=== PATIENT | male | born 1995 | race African-American/Black ===

== ENCOUNTER → 2020-11-28 | Outpatient (CLI) | payer OTHER ==
--- NOTE | 2020-11-28 17:29 | REP ---
INDICATION: SHUT FINGER IN CAR DOOR. COMPARISON: None. TECHNIQUE: Right hand 4th digit four views FINDINGS: No acute fracture or destructive osseous lesion. IMPRESSION: Negative exam <Electronically signed by Akash Day > 11/28/20 [id number]
== END ==
LOC: M RAD 17:03
PROVIDERS: ATTEND Physician Assistant
DX: S67.194A Crushing injury of right ring finger, initial encounter (principal); W23.1XXA Caught, crushed, jammed, or pinched between stationary objects, initial encounter

== ENCOUNTER → 2022-01-30 | Outpatient (CLI) | payer OTHER | LOC: M PLAIMG 07:50 | PROVIDERS: ATTEND Nurse Practitioner Family | DX: M94.271 Chondromalacia, right ankle and joints of right foot (principal) ==

== ENCOUNTER 2022-02-18 06:18 | Emergency (ER) | payer OTHER ==
[~2022-02-18] VITALS: Ht 188 cm; Wt 86.4 kg
[2022-02-18] MEDS ORDERED: GI COCKTAIL 50ML BTL(HYOSCYAMINE/MAALOX/LIDOCAINE VISCOUS)(1:3:1) PO ONE (07:30)
[2022-02-18 07:37] LABS: BASO # 0.1 10^3/uL (0.0-0.2); BASO % 1.1 % (0.0-1.0); EOS # 0.2 10^3/uL (0.0-0.5); EOS % 3.5 % (0.0-3.0); HEMATOCRIT 45.2 % (42.0-52.0); HEMOGLOBIN 15.1 g/dl (13.5-17.5); LYMPH # 2.7 10^3/uL (1.5-5.0); LYMPH % 49.8 % (24.0-44.0); MEAN CORPUSCULAR HEMOGLOBIN 28.5 pg (27.0-33.0); MEAN CORPUSCULAR HGB CONC 33.4 g/dl (32.0-36.5); MEAN CORPUSCULAR VOLUME 85.4 fl (80.0-96.0); MONO # 0.5 10^3/uL (0.0-0.8); MONO % 8.5 % (2.0-8.0); NEUTROPHILS % 36.9 % (36.0-66.0); PLATELET COUNT, AUTOMATED 193 10^3/uL (150-450); RED BLOOD COUNT 5.29 10^6/uL (4.30-6.10); WHITE BLOOD COUNT 5.5 10^3/uL (4.0-10.0)
[2022-02-18 08:11] LABS: ALBUMIN 3.8 GM/DL (3.2-5.2); ALT/SGPT 23 U/L (12-78); BILIRUBIN,DIRECT < 0.1 MG/DL (0.0-0.2); BILIRUBIN,TOTAL 0.5 MG/DL (0.2-1.0); BLOOD UREA NITROGEN 13 MG/DL (7-18); CALCIUM LEVEL 9.4 MG/DL (8.5-10.1); CARBON DIOXIDE LEVEL 28 MEQ/L (21-32); CHLORIDE LEVEL 107 MEQ/L (98-107); CK-MB VALUE MASS < 1.0 NG/ML (<3.6); CPK CREATINE PHOSPHOKINASE 268 U/L (39-308); CREATININE FOR GFR 0.98 MG/DL (0.70-1.30); GLOMERULAR FILTRATION RATE > 60.0 (>60); GLUCOSE, FASTING 88 MG/DL (70-100); LIPASE 82 U/L (73-393); MB/CK RELATIVE INDEX 0.37 (< OR =4); POTASSIUM SERUM 4.8 MEQ/L (3.5-5.1); SODIUM LEVEL 136 MEQ/L (136-145); TOTAL PROTEIN 7.6 GM/DL (6.4-8.2)
[2022-02-18] MEDS ORDERED: PEPC1TAB5 PO (08:56)
[2022-02-18 09:12] VITALS: BP 132/92
== END 2022-02-18 09:20 | disposition home or self-care (01) ==
LOC: M ED 06:18
DX: K29.71 Gastritis, unspecified, with bleeding (principal)

== ENCOUNTER 2022-07-03 07:03 | Emergency (ER) | payer OTHER ==
[~2022-07-03] VITALS: Ht 188 cm; Wt 87.7 kg
[~2022-07-03 07:03] MED LIST: PEPC1TAB5 PO
[2022-07-03 07:53] LABS: BASO # 0.1 10^3/uL (0.0-0.2); BASO % 1.1 % (0.0-1.0); EOS # 0.3 10^3/uL (0.0-0.5); EOS % 5.2 % (0.0-3.0); HEMATOCRIT 45.5 % (42.0-52.0); LYMPH # 2.7 10^3/uL (1.5-5.0); LYMPH % 48.5 % (24.0-44.0); MEAN CORPUSCULAR HEMOGLOBIN 28.2 pg (27.0-33.0); MEAN CORPUSCULAR VOLUME 85.5 fl (80.0-96.0); MONO # 0.5 10^3/uL (0.0-0.8); MONO % 8.6 % (2.0-8.0); NEUTROPHILS % 36.4 % (36.0-66.0); PLATELET COUNT, AUTOMATED 203 10^3/uL (150-450); RED BLOOD COUNT 5.32 10^6/uL (4.30-6.10); WHITE BLOOD COUNT 5.6 10^3/uL (4.0-10.0)
[2022-07-03 08:20] LABS: LIPASE 26 U/L (12-53)
[2022-07-03 08:21] LABS: CK-MB VALUE MASS < 1.0 NG/ML (<3.6)
[2022-07-03 08:23] LABS: CPK CREATINE PHOSPHOKINASE 211 U/L (46-171); MB/CK RELATIVE INDEX 0.47 (< OR =4)
[2022-07-03 08:34] LABS: ALBUMIN 3.9 G/DL (3.2-5.2); ALKALINE PHOSPHATASE 77 U/L (46-116); ALT/SGPT 33 U/L (7.0-40); AST/SGOT 25 U/L (<34); BILIRUBIN,DIRECT 0.1 MG/DL (<0.4); BILIRUBIN,TOTAL 0.4 MG/DL (0.3-1.2); BLOOD UREA NITROGEN 12 MG/DL (9-23); CALCIUM LEVEL 8.8 MG/DL (8.5-10.1); CARBON DIOXIDE LEVEL 26 MMOL/L (20-31); CHLORIDE LEVEL 105 MMOL/L (98-107); CREATININE FOR GFR 1.04 MG/DL (0.70-1.30); GLOMERULAR FILTRATION RATE > 60.0 (>60); GLUCOSE, FASTING 97 MG/DL (60-100); POTASSIUM SERUM 4.1 MMOL/L (3.5-5.1); SODIUM LEVEL 139 MMOL/L (136-145); TOTAL PROTEIN 7.1 G/DL (5.7-8.2)
[2022-07-03] MEDS ORDERED: KETOROLAC 30 MG/ML 1ML VIAL IV ONE (09:05)
[2022-07-03] MEDS ORDERED: ISOVUE-370 76% 100ML VIAL As Ordered ONE (09:07)
[2022-07-03 10:17] LABS: GC DNA AMPLIFICATION NEGATIVE (NEGATIVE)
[2022-07-03 11:00] VITALS: BP 127/81
== END 2022-07-03 11:20 | disposition home or self-care (01) ==
LOC: M ED 07:03
DX: R07.9 Chest pain, unspecified (principal); R10.9 Unspecified abdominal pain
CPT/HCPCS: 36415; 71046; 71275; 74177; 80048; 80076; 81002; 82550; 82553; 83690; 84484; 85025; 87810; 87850; 93005; 96374; 99284; J1885

== ENCOUNTER 2022-09-03 15:09 | Emergency (ER) | payer OTHER ==
[~2022-09-03] VITALS: Ht 188 cm; Wt 185.0 kg
[~2022-09-03 15:09] MED LIST changes: -DIPHENHYDRAMINE 25 MG ONE
[2022-09-03 18:32] VITALS: BP 125/87
== END 2022-09-03 18:22 | disposition home or self-care (01) ==
LOC: EDBD 15:09 → M ED 15:09
DX: F41.0 Panic disorder [episodic paroxysmal anxiety] (principal); Z87.442 Personal history of urinary calculi

== ENCOUNTER → 2022-09-03 | Outpatient (CLI) | payer OTHER ==
[~2022-09-03] MED LIST changes: +DIPHENHYDRAMINE 25 MG ONE
== END ==
LOC: M PLAIMG 13:23
PROVIDERS: ATTEND Physician Assistant Surgical
DX: M79.641 Pain in right hand (principal)

== ENCOUNTER → 2022-10-04 | Outpatient (CLI) | payer OTHER | LOC: M RAD 14:56 | PROVIDERS: ATTEND Physician Assistant Surgical | DX: M79.641 Pain in right hand (principal) ==

== ENCOUNTER → 2022-11-06 | Outpatient (CLI) | payer OTHER | LOC: M SOG 08:50 | PROVIDERS: ATTEND Physician Assistant | DX: M79.641 Pain in right hand (principal) ==

== ENCOUNTER 2022-11-24 21:52 | Emergency (ER) | payer OTHER ==
[~2022-11-24] VITALS: Ht 185.4 cm; Wt 88.0 kg
[2022-11-24 21:53] VITALS: TEMP 97.2
[2022-11-24 22:30] LABS: APPEARANCE, URINE CLEAR (CLEAR); BACTERIA, URINE AUTO NEGATIVE (NEGATIVE); BILIRUBIN, URINE AUTO NEGATIVE (NEGATIVE); BLOOD, URINE BLOOD NEGATIVE (NEGATIVE); COLOR, URINE COLORLESS (YELLOW); GLUCOSE, URINE (UA) AUTO NEGATIVE (NEGATIVE); KETONE, URINE AUTO NEGATIVE (NEGATIVE); LEUKOCYTE ESTERASE, URINE AUTO NEGATIVE (NEGATIVE); NITRITE, URINE AUTO NEGATIVE (NEGATIVE); PROTEIN, URINE AUTO NEGATIVE (NEGATIVE); RBC, URINE AUTO 0 /HPF (0-3); SPECIFIC GRAVITY URINE AUTO 1.001 (1.002-1.035); SQUAMOUS EPITHELIAL CELL UR AU 0 /HPF (0-6); UROBILINOGEN, URINE AUTO 0.2 mg/dL (0.0-2.0); WBC, URINE AUTO 0 /HPF (0-3)
[2022-11-25 00:28] LABS: LIPASE 24 U/L (12-53)
[2022-11-25 00:30] LABS: ALBUMIN 4.1 G/DL (3.2-5.2); ALKALINE PHOSPHATASE 69 U/L (46-116); ALT/SGPT 17 U/L (7.0-40); AST/SGOT 12 U/L (<34); BILIRUBIN,DIRECT 0.1 MG/DL (<0.4); BILIRUBIN,TOTAL 0.4 MG/DL (0.3-1.2); BLOOD UREA NITROGEN 7 MG/DL (9-23); CALCIUM LEVEL 9.3 MG/DL (8.5-10.1); CARBON DIOXIDE LEVEL 29 MMOL/L (20-31); CHLORIDE LEVEL 105 MMOL/L (98-107); CREATININE FOR GFR 0.92 MG/DL (0.70-1.30); GLOMERULAR FILTRATION RATE > 60.0 (>60); GLUCOSE, FASTING 85 MG/DL (60-100); POTASSIUM SERUM 3.8 MMOL/L (3.5-5.1); SODIUM LEVEL 139 MMOL/L (136-145); TOTAL PROTEIN 7.2 G/DL (5.7-8.2)
[2022-11-25 01:01] LABS: BASO # 0.1 10^3/uL (0.0-0.2); EOS # 0.2 10^3/uL (0.0-0.5); EOS % 2.9 % (0.0-3.0); HEMATOCRIT 46.6 % (42.0-52.0); HEMOGLOBIN 15.6 g/dl (13.5-17.5); LYMPH # 3.6 10^3/uL (1.5-5.0); LYMPH % 46.4 % (24.0-44.0); MEAN CORPUSCULAR HEMOGLOBIN 28.6 pg (27.0-33.0); MEAN CORPUSCULAR HGB CONC 33.5 g/dl (32.0-36.5); MEAN CORPUSCULAR VOLUME 85.5 fl (80.0-96.0); MONO # 0.6 10^3/uL (0.0-0.8); MONO % 8.2 % (2.0-8.0); NEUTROPHILS # 3.2 10^3/uL (1.5-8.5); NEUTROPHILS % 41.2 % (36.0-66.0); PLATELET COUNT, AUTOMATED 207 10^3/uL (150-450); RED BLOOD COUNT 5.45 10^6/uL (4.30-6.10); WHITE BLOOD COUNT 7.7 10^3/uL (4.0-10.0)
[2022-11-25 01:30] VITALS: BP 104/64
[2022-11-25] MEDS ORDERED: KETOROLAC 30 MG/ML 1ML VIAL IV ONE (01:40)
[2022-11-25] MEDS ORDERED: methocarbamoL 750 MG TAB PO ONE (01:40)
[2022-11-25] MEDS ORDERED: KETO10TAB PO (01:41)
[2022-11-25] MEDS ORDERED: METH-1165 PO (01:41)
[2022-11-25 01:52] VITALS: O2SAT 98
== END 2022-11-25 02:02 | disposition home or self-care (01) ==
LOC: M ED 21:52
DX: M54.9 Dorsalgia, unspecified (principal); Z87.442 Personal history of urinary calculi; F17.200 Nicotine dependence, unspecified, uncomplicated
CPT/HCPCS: 80048; 80076; 81001; 83690; 85025; 93041; 96374; 99284; J1885